=== PATIENT | male | born 1970 | race Caucasian/White ===

== ENCOUNTER 2017-11-30 05:57 | Day surgery (SDC) | payer OTHER ==
[2017-11-30] MEDS ORDERED: RECTICARE30 GM TOP (09:40)
[2017-11-30] MEDS ORDERED: PERCOCET 5-3251 EACH PO (09:40)
== END 2017-11-30 12:35 | disposition home or self-care (01) ==
LOC: CIR.AMB 05:57
DX: K60.1 Chronic anal fissure (principal); K60.3 Anal fistula